=== PATIENT | female | born 1945 | race Two or more races ===

== ENCOUNTER 2023-07-11 11:43 | Emergency (ER) | payer OTHER ==
[~2023-07-11] VITALS: Ht 157.5 cm; Wt 58.5 kg
[2023-07-11] MEDS ORDERED: PRAX237 ML (12:46)
[2023-07-11] MEDS ORDERED: ALLERGY RELIEF10 M3 (12:47)
[2023-07-11] MEDS ORDERED: VERDESO100 GM (12:47)
[2023-07-11 13:08] LABS: HEMATOCRIT 40.8 % (36.0-45.00); HEMOGLOBIN 13.6 g/dL (12.0-15.00); MEAN CELL VOLUME 95.7 fL (80.00-100.00); MEAN CORPUSCULAR HEMOGLOBIN 31.9 pg (27.00-32.0); MEAN CORPUSCULAR HGB CONC 33.3 g/dl (32.0-36.0); PLATELET COUNT 265 K/uL (150-450); RED BLOOD COUNT 4.26 M/uL (4.00-6.00); RED CELL DISTRIBUTION WIDTH 14.2 % (11.5-14.5)
[2023-07-11 13:29] LABS: ALBUMIN 3.5 gm/dL (3.4-5.0); BILIRUBIN TOTAL 0.19 mg/dL (0.3-1.2); CALCIUM 9.1 mg/dL (8.5-10.1); CREATININE SERUM 0.86 mg/dL (0.55-1.02); GFR 63.82; GLOBULINA 3.6 G/DL (2.4-3.5); POTASSIUM 3.15 mEq/L (3.5-5.1); TOTAL PROTEIN 7.1 gm/dL (6.4-8.2)
== END 2023-07-11 16:36 | disposition home or self-care (01) ==
LOC: ER 11:43
PROVIDERS: Emergency Medicine
DX: L30.9 Dermatitis, unspecified (principal); I10 Essential (primary) hypertension
CPT/HCPCS: 36415; 96365; 96366; 99282; J2405; J2920; J7042

== ENCOUNTER 2023-07-24 07:03 | Emergency (ER) | payer OTHER ==
[~2023-07-24] VITALS: Ht 157.5 cm; Wt 65.8 kg
[~2023-07-24 07:03] MED LIST: ALLERGY RELIEF10 M3; PRAX237 ML; VERDESO100 GM
[2023-07-24 08:54] LABS: HEMATOCRIT 36.7 % (36.0-45.00); HEMOGLOBIN 11.9 g/dL (12.0-15.00); MEAN CELL VOLUME 97.3 fL (80.00-100.00); MEAN CORPUSCULAR HEMOGLOBIN 31.4 pg (27.00-32.0); MEAN CORPUSCULAR HGB CONC 32.3 g/dl (32.0-36.0); PLATELET COUNT 277 K/uL (150-450); RED BLOOD COUNT 3.77 M/uL (4.00-6.00)
[2023-07-24 09:45] LABS: ALBUMIN 3.1 gm/dL (3.4-5.0); BILIRUBIN TOTAL 0.29 mg/dL (0.3-1.2); CALCIUM 8.9 mg/dL (8.5-10.1); CREATININE SERUM 0.7 mg/dL (0.55-1.02); GFR 80.93; GLOBULINA 3.6 G/DL (2.4-3.5); POTASSIUM 3.7 mEq/L (3.5-5.1); TOTAL PROTEIN 6.7 gm/dL (6.4-8.2)
[2023-07-24 09:50] LABS: PH,URINE 7.5 (5.0-8.0); URINE APPEARANCE Turbid; URINE BILIRRUBIN Small (NEGATIVE); URINE BLOOD Large; URINE COLOR Orange; URINE GLUCOSE Negative (NEGATIVE); URINE LEUKOCYTE Small; URINE NITRATE Negative; URINE PROTEIN 30 (NEGATIVE); URINE UROBILINOGEN 0.2 E.U./dl
[2023-07-24 09:51] LABS: URINE BACTERIA 255.7 uL (0.0-1933); URINE EPITHELIAL CELLS 3.5 uL (0.0-38.8); URINE WBC 52.8 uL (0.0-23.2)
[2023-07-24 09:58] LABS: URINE RBC > 10558.9 uL (0.0-20.8)
== END 2023-07-24 13:03 | disposition home or self-care (01) ==
LOC: ER 07:04
PROVIDERS: Emergency Medicine
DX: N93.8 Other specified abnormal uterine and vaginal bleeding (principal)

== ENCOUNTER 2023-10-18 09:04 | Inpatient (IN) | payer OTHER ==
[~2023-10-18] VITALS: Ht 152.4 cm; Wt 76.2 kg
[2023-10-18] MEDS ORDERED: LOTENSIN40 MG (09:12)
[2023-10-18] MEDS ORDERED: MEDI-MECLIZINE25 MG PO (09:12)
[2023-10-18] MEDS ORDERED: PEPCID AC20 MG (09:13)
[2023-10-18] MEDS ORDERED: SINGULAIR10 MG (09:13)
[2023-10-18] MEDS ORDERED: 0.9 % SODIUM CHLORIDE 1,000 ML IV STA (09:31)
[2023-10-18] MEDS ORDERED: FAMOtidine 10 MG/ML (4ML VIAL) IV STA (09:32)
[2023-10-18] MEDS ORDERED: ONDANSETRON HCL 2 MG/ML VIAL IV ONE (09:45)
[2023-10-18 10:00] LABS: HEMATOCRIT 37.7 % (36.0-45.00); HEMOGLOBIN 12.5 g/dL (12.0-15.00); MEAN CELL VOLUME 91.4 fL (80.00-100.00); MEAN CORPUSCULAR HEMOGLOBIN 30.3 pg (27.00-32.0); MEAN CORPUSCULAR HGB CONC 33.2 g/dl (32.0-36.0); PLATELET COUNT 214 K/uL (150-450); RED BLOOD COUNT 4.12 M/uL (4.00-6.00); RED CELL DISTRIBUTION WIDTH 14.6 % (11.5-14.5)
[2023-10-18 10:26] LABS: CREATININE SERUM 1.17 mg/dL (0.55-1.02); GFR 44.74
[2023-10-18 10:37] LABS: POTASSIUM 2.19 mEq/L (3.5-5.1)
[2023-10-18] MEDS ORDERED: ACETAMINOPHEN 500 MG GEL..CAP PO STA (10:56)
[2023-10-18] MEDS ORDERED: POTASSIUM CHLORIDE/D5-0.9%NACL 1,000 ML IV ONE (11:00)
[2023-10-18 11:17] LABS: URINE APPEARANCE Cloudy; URINE BILIRRUBIN Negative (NEGATIVE); URINE BLOOD Negative; URINE COLOR Dark Yellow; URINE GLUCOSE Negative (NEGATIVE); URINE LEUKOCYTE Small; URINE NITRATE Negative
[2023-10-18 11:20] LABS: URINE BACTERIA 127.2 uL (0.0-1933); URINE EPITHELIAL CELLS 32.7 uL (0.0-38.8); URINE RBC 173.4 uL (0.0-20.8)
[2023-10-18 12:04] LABS: URINE PROTEIN 100 (NEGATIVE)
[2023-10-18] MEDS ORDERED: ALPRAzolam 1 MG TABLET PO STA (16:09)
[2023-10-18 21:05] LABS: ALBUMIN 2.8 gm/dL (3.4-5.0); BILIRUBIN TOTAL 0.37 mg/dL (0.3-1.2); CALCIUM 8.5 mg/dL (8.5-10.1); CREATININE SERUM 0.76 mg/dL (0.55-1.02); GFR 73.6; GLOBULINA 3.6 G/DL (2.4-3.5); MAGNESIUM 2.6 mg/dL (1.8-2.4); TOTAL PROTEIN 6.4 gm/dL (6.4-8.2)
[2023-10-18 21:15] LABS: POTASSIUM 2.79 mEq/L (3.5-5.1)
[2023-10-18 21:16] LABS: PHOSPHOROUS 1.4 mg/dL (2.5-4.9)
[2023-10-18] MEDS ORDERED: POTASSIUM PHOS,M-BASIC-D-BASIC 3 MM/ML VIAL IV ONE (21:30)
[2023-10-18] MEDS ORDERED: METRONIDAZOLE/SODIUM CHLORIDE 500 MG/100 ML PIGGYBACK IV ONE (23:00)
[2023-10-18] MEDS ORDERED: CIPROFLOXACIN IN 5 % DEXTROSE 400 MG/200 ML PIGGYBAG IV ONE (23:00)
[2023-10-18] MEDS ORDERED: 0.9 % SODIUM CHLORIDE 1,000 ML IV SCH (23:15)
[2023-10-18] MEDS ORDERED: ONDANSETRON HCL 4 MG in 0.9 % SODIUM CHLORIDE 50 ML IV PRN (23:30)
[2023-10-18] MEDS ORDERED: MORPHINE SULFATE 4 MG/ML CARTRIDGE IV PRN (23:30)
[2023-10-18] MEDS ORDERED: ENALAPRILAT DIHYDRATE 1.25 MG/ML VIAL IV PRN (23:30)
[2023-10-18] MEDS ORDERED: ACETAMINOPHEN 500 MG GEL..CAP PO PRN (23:30)
[2023-10-19] MEDS ORDERED: METRONIDAZOLE/SODIUM CHLORIDE 100 ML IV SCH (01:00)
[2023-10-19] MEDS ORDERED: POTASSIUM CHLORIDE IN WATER 100 ML IV SCH (01:00)
[2023-10-19 02:33] LABS: PH,URINE 8.5 (5.0-8.0); URINE APPEARANCE Clear; URINE BILIRRUBIN Negative (NEGATIVE); URINE BLOOD Negative; URINE COLOR Yellow; URINE GLUCOSE Negative (NEGATIVE); URINE LEUKOCYTE Negative; URINE NITRATE Negative; URINE UROBILINOGEN 0.2 E.U./dl
[2023-10-19 02:38] LABS: URINE BACTERIA 8.8 uL (0.0-1933); URINE RBC 16.8 uL (0.0-20.8); URINE WBC 4.4 uL (0.0-23.2)
[2023-10-19 02:39] LABS: URINE PROTEIN 100 (NEGATIVE)
[2023-10-19 02:43] LABS: INR 0.97; PARTIAL THROMBOPLASTIN TIME 29.6 SECONDS (22.0-34.0); PROTHROMBIN TIME 10.2 SECONDS (9.0-11.5)
[2023-10-19] MEDS ORDERED: FAMOTIDINE/PF 20 MG in 0.9 % SODIUM CHLORIDE 8 ML IV PUSH SCH (09:00)
[2023-10-19] MEDS ORDERED: CIPROFLOXACIN IN 5 % DEXTROSE 200 ML IV SCH (09:00)
[2023-10-19 12:32] LABS: CALCIUM 8.5 mg/dL (8.5-10.1); CHOL HDL RATIO 3.1 (0-5.0); CREATININE SERUM 0.57 mg/dL (0.55-1.02); GFR 102.58; POTASSIUM 3.34 mEq/L (3.5-5.1)
[2023-10-19] MEDS ORDERED: AA 4.25%/CAL/LYTES/DEXT 5% 1,000 ML PERIFERAL SCH (17:00)
[2023-10-19] MEDS ORDERED: HALOPERIDOL LACTATE 5 MG/ML AMPUL IM PRN (18:45)
[2023-10-20 06:46] LABS: HEMATOCRIT 36.7 % (36.0-45.00); HEMOGLOBIN 12.2 g/dL (12.0-15.00); MEAN CELL VOLUME 89.6 fL (80.00-100.00); MEAN CORPUSCULAR HEMOGLOBIN 29.8 pg (27.00-32.0); MEAN CORPUSCULAR HGB CONC 33.3 g/dl (32.0-36.0); PLATELET COUNT 221 K/uL (150-450); RED BLOOD COUNT 4.09 M/uL (4.00-6.00); RED CELL DISTRIBUTION WIDTH 14.6 % (11.5-14.5)
[2023-10-20 07:27] LABS: ALBUMIN 2.4 gm/dL (3.4-5.0); BILIRUBIN TOTAL 0.53 mg/dL (0.3-1.2); CALCIUM 8.6 mg/dL (8.5-10.1); CREATININE SERUM 0.42 mg/dL (0.55-1.02); GFR 145.92; GLOBULINA 3.1 G/DL (2.4-3.5); MAGNESIUM 2.1 mg/dL (1.8-2.4); PHOSPHOROUS 2.5 mg/dL (2.5-4.9); POTASSIUM 3.42 mEq/L (3.5-5.1); TOTAL PROTEIN 5.5 gm/dL (6.4-8.2)
[2023-10-20 07:29] LABS: C-REACTIVE PROTEIN 18.2 MG/DL (0.00-0.29)
[2023-10-21] MEDS ORDERED: FAMOTIDINE/PF 20 MG/2 ML VIAL ONE (07:21)
[2023-10-21] MEDS ORDERED: MORPHINE SULFATE 4 MG/ML CARTRIDGE IV SCH (17:00)
[2023-10-21] MEDS ORDERED: METRONIDAZOLE/SODIUM CHLORIDE 500 MG/100 ML PIGGYBACK IV ONE (18:02)
[2023-10-22] MEDS ORDERED: 0.9 % SODIUM CHLORIDE 10 ML VIAL IJ ONE (07:01)
[2023-10-23 12:37] LABS: ALBUMIN 1.9 gm/dL (3.4-5.0); BILIRUBIN TOTAL 0.35 mg/dL (0.3-1.2); CALCIUM 8.3 mg/dL (8.5-10.1); CREATININE SERUM 0.31 mg/dL (0.55-1.02); GFR 207.16; GLOBULINA 3.4 G/DL (2.4-3.5); POTASSIUM 3.84 mEq/L (3.5-5.1); TOTAL PROTEIN 5.3 gm/dL (6.4-8.2)
[2023-10-23 15:22] LABS: HEMATOCRIT 37.9 % (36.0-45.00); HEMOGLOBIN 12.6 g/dL (12.0-15.00); MEAN CORPUSCULAR HEMOGLOBIN 29.7 pg (27.00-32.0); MEAN CORPUSCULAR HGB CONC 33.4 g/dl (32.0-36.0); PLATELET COUNT 248 K/uL (150-450); RED BLOOD COUNT 4.26 M/uL (4.00-6.00); RED CELL DISTRIBUTION WIDTH 14.8 % (11.5-14.5)
[2023-10-23 15:51] LABS: CKMB 1.4 NG/ML (0.5-3.6); MAGNESIUM 1.9 mg/dL (1.8-2.4); PHOSPHOROUS 2.2 mg/dL (2.5-4.9)
[2023-10-23 15:52] LABS: C-REACTIVE PROTEIN 16.3 MG/DL (0.00-0.29)
[2023-10-23] MEDS ORDERED: MEROPENEM 500 MG/VIAL VIAL IV SCH (17:00)
[2023-10-24] MEDS ORDERED: LABETALOL HCL 100 MG/20 ML ML IV PRN (19:00)
[2023-10-24] MEDS ORDERED: LOSARTAN POTASSIUM 50 MG TABLET PO STA (20:03)
[2023-10-24] MEDS ORDERED: LOSARTAN POTASSIUM 50 MG TABLET PO SCH (20:03)
[2023-10-24] MEDS ORDERED: METOPROLOL SUCCINATE 50 MG TAB.SR.24H PO STA (20:03)
[2023-10-24] MEDS ORDERED: METOPROLOL SUCCINATE 50 MG TAB.SR.24H PO SCH (20:03)
[2023-10-24] MEDS ORDERED: AMLODIPINE BESYLATE 10 MG TABLET PO ONE (21:57)
[2023-10-24] MEDS ORDERED: NITROGLYCERIN IN 5 % DEXTROSE 250 ML IV SCH (22:00)
[2023-10-24] MEDS ORDERED: AMLODIPINE BESYLATE 10 MG TABLET PO SCH (22:22)
[2023-10-24] MEDS ORDERED: hydrALAZINE HCL 20 MG VIAL IV PRN (22:30)
[2023-10-25 07:23] LABS: CALCIUM 8.4 mg/dL (8.5-10.1); GFR 253.78; POTASSIUM 4.49 mEq/L (3.5-5.1)
[2023-10-25 07:28] LABS: HEMATOCRIT 32.3 % (36.0-45.00); HEMOGLOBIN 11.2 g/dL (12.0-15.00); MEAN CELL VOLUME 87.2 fL (80.00-100.00); MEAN CORPUSCULAR HEMOGLOBIN 30.3 pg (27.00-32.0); MEAN CORPUSCULAR HGB CONC 34.8 g/dl (32.0-36.0); PLATELET COUNT 243 K/uL (150-450); RED CELL DISTRIBUTION WIDTH 14.8 % (11.5-14.5)
[2023-10-25 07:31] LABS: CREATININE SERUM 0.26 mg/dL (0.55-1.02)
[2023-10-25] MEDS ORDERED: DILTIAZEM HCL 125 MG in 0.9 % SODIUM CHLORIDE 125 ML IV SCH (16:15)
[2023-10-25] MEDS ORDERED: DILTIAZEM HCL 125 MG in 0.9 % SODIUM CHLORIDE 100 ML IV SCH (16:30)
[2023-10-25] MEDS ORDERED: DOXAZOSIN MESYLATE 2 MG TABLET PO SCH (17:00)
[2023-10-26 07:25] LABS: HEMATOCRIT 34.2 % (36.0-45.00); HEMOGLOBIN 11.5 g/dL (12.0-15.00); MEAN CELL VOLUME 89.1 fL (80.00-100.00); MEAN CORPUSCULAR HEMOGLOBIN 29.8 pg (27.00-32.0); MEAN CORPUSCULAR HGB CONC 33.5 g/dl (32.0-36.0); RED BLOOD COUNT 3.84 M/uL (4.00-6.00); RED CELL DISTRIBUTION WIDTH 14.5 % (11.5-14.5)
[2023-10-26 07:46] LABS: ALBUMIN 1.9 gm/dL (3.4-5.0); BILIRUBIN TOTAL 0.5 mg/dL (0.3-1.2); BILIRUBIN,CONJUGATED 0.15 mg/dL (0.0-0.2); BILIRUBIN,UNCONJUGATED 0.35 mg/dL (0.0-0.6); CALCIUM 8.5 mg/dL (8.5-10.1); GFR 242.96; GLOBULINA 3.2 G/DL (2.4-3.5); MAGNESIUM 2.2 mg/dL (1.8-2.4); POTASSIUM 4.38 mEq/L (3.5-5.1); TOTAL PROTEIN 5.1 gm/dL (6.4-8.2)
[2023-10-26 07:48] LABS: CREATININE SERUM 0.27 mg/dL (0.55-1.02)
[2023-10-26 08:31] LABS: PLATELET COUNT 233 K/uL (150-450)
[2023-10-26] MEDS ORDERED: hydrALAZINE HCL 50 MG TABLET PO SCH (09:00)
[2023-10-26] MEDS ORDERED: LOSARTAN POTASSIUM 100 MG TABLET PO SCH (09:00)
[2023-10-26 09:15] LABS: UREA CLEARANCE 30.5 ML/MIN
[2023-10-26 09:51] LABS: INR 0.98; PARTIAL THROMBOPLASTIN TIME 24.1 SECONDS (22.0-34.0); PROTHROMBIN TIME 10.3 SECONDS (9.0-11.5)
[2023-10-26 19:10] LABS: PH,URINE 6.5 (5.0-8.0); URINE APPEARANCE Clear; URINE BILIRRUBIN Negative (NEGATIVE); URINE BLOOD Trace; URINE COLOR Yellow; URINE GLUCOSE Negative (NEGATIVE); URINE LEUKOCYTE Negative; URINE NITRATE Negative; URINE PROTEIN Trace (NEGATIVE); URINE UROBILINOGEN 0.2 E.U./dl
[2023-10-26 19:14] LABS: URINE BACTERIA 32.7 uL (0.0-1933); URINE EPITHELIAL CELLS 5.4 uL (0.0-38.8); URINE RBC 171.9 uL (0.0-20.8)
[2023-10-27 06:54] LABS: HEMATOCRIT 34.3 % (36.0-45.00); HEMOGLOBIN 11.4 g/dL (12.0-15.00); MEAN CELL VOLUME 89.3 fL (80.00-100.00); MEAN CORPUSCULAR HEMOGLOBIN 29.6 pg (27.00-32.0); MEAN CORPUSCULAR HGB CONC 33.2 g/dl (32.0-36.0); PLATELET COUNT 249 K/uL (150-450); RED BLOOD COUNT 3.84 M/uL (4.00-6.00); RED CELL DISTRIBUTION WIDTH 14.5 % (11.5-14.5)
[2023-10-27 06:56] LABS: ALBUMIN 1.8 gm/dL (3.4-5.0); BILIRUBIN TOTAL 0.45 mg/dL (0.3-1.2); CALCIUM 8.5 mg/dL (8.5-10.1); GLOBULINA 3.1 G/DL (2.4-3.5); MAGNESIUM 2.2 mg/dL (1.8-2.4); PHOSPHOROUS 3.3 mg/dL (2.5-4.9); POTASSIUM 4.44 mEq/L (3.5-5.1); TOTAL PROTEIN 4.9 gm/dL (6.4-8.2)
[2023-10-27 07:01] LABS: C-REACTIVE PROTEIN 6.51 MG/DL (0.00-0.29); CREATININE SERUM 0.28 mg/dL (0.55-1.02); GFR 232.99
[2023-10-27 09:25] LABS: PLATELET ESTIMATE NORMAL (NORMAL)
[2023-10-27] MEDS ORDERED: IOHEXOL 350 mgI/ML 50ML BOTT PO ONE (10:15)
[2023-10-28] MEDS ORDERED: PANTOPRAZOLE SODIUM 40 MG/VIAL VIAL IV PUSH SCH (09:00)
[2023-10-29 07:40] LABS: HEMATOCRIT 30.5 % (36.0-45.00); HEMOGLOBIN 10.2 g/dL (12.0-15.00); MEAN CELL VOLUME 88.7 fL (80.00-100.00); MEAN CORPUSCULAR HEMOGLOBIN 29.6 pg (27.00-32.0); MEAN CORPUSCULAR HGB CONC 33.4 g/dl (32.0-36.0); PLATELET COUNT 310 K/uL (150-450); RED BLOOD COUNT 3.44 M/uL (4.00-6.00)
[2023-10-29 08:17] LABS: ALBUMIN 1.5 gm/dL (3.4-5.0); BILIRUBIN TOTAL 0.37 mg/dL (0.3-1.2); CREATININE SERUM 0.36 mg/dL (0.55-1.02); GFR 174.33; GLOBULINA 2.7 G/DL (2.4-3.5); MAGNESIUM 2.5 mg/dL (1.8-2.4); PHOSPHOROUS 3.8 mg/dL (2.5-4.9); POTASSIUM 4.7 mEq/L (3.5-5.1); TOTAL PROTEIN 4.2 gm/dL (6.4-8.2)
[2023-10-29 08:27] LABS: C-REACTIVE PROTEIN 5.85 MG/DL (0.00-0.29)
[2023-10-29] MEDS ORDERED: VANCOMYCIN HCL 1,000 MG VIAL IV SCH (17:00)
[2023-10-29] MEDS ORDERED: hydrALAZINE HCL 50 MG TABLET PO SCH (21:00)
[2023-10-30] MEDS ORDERED: hydrALAZINE HCL 50 MG TABLET PO SCH (09:00)
[2023-10-30] MEDS ORDERED: fentaNYL CITRATE 50 MCG/ML AMPUL IV PUSH ONE (16:30)
[2023-10-30] MEDS ORDERED: MIDAZOLAM HCL 2 MG/2 ML VIAL IV PUSH ONE (16:30)
[2023-10-30] MEDS ORDERED: ENOXAPARIN SODIUM 80 MG/0.8 ML SYRINGE SUBCUTANEO SCH (17:35)
[2023-10-30] MEDS ORDERED: VANCOMYCIN HCL 125 MG/7.5 ML BLIST.PACK PO SCH (18:30)
[2023-10-30] MEDS ORDERED: hydrALAZINE HCL 25 MG TABLET PO SCH (21:00)
[2023-10-31] MEDS ORDERED: hydrALAZINE HCL 25 MG TABLET PO SCH (09:00)
[2023-10-31] MEDS ORDERED: NYSTATIN 15 GM,SILVER SULFADIAZINE 50 GM,ZINC OXIDE 30 GM TOP SCH (10:44)
[2023-11-01] MEDS ORDERED: LACTOBACILLUS ACIDOPHILUS 1 CAP CAP PO SCH (18:42)
[2023-11-01] MEDS ORDERED: BISMUTH SUBSALICYLATE 524 MG/30 ML BLIST.PACK PO PRN (19:00)
[2023-11-02 06:01] LABS: HEMOGLOBIN 10.2 g/dL (12.0-15.00); MEAN CELL VOLUME 89.9 fL (80.00-100.00); MEAN CORPUSCULAR HEMOGLOBIN 30.4 pg (27.00-32.0); MEAN CORPUSCULAR HGB CONC 33.9 g/dl (32.0-36.0); PLATELET COUNT 376 K/uL (150-450); RED BLOOD COUNT 3.34 M/uL (4.00-6.00); RED CELL DISTRIBUTION WIDTH 15.2 % (11.5-14.5)
[2023-11-02 06:33] LABS: CALCIUM 8.2 mg/dL (8.5-10.1); CREATININE SERUM 0.31 mg/dL (0.55-1.02); GFR 207.16; POTASSIUM 3.85 mEq/L (3.5-5.1)
[2023-11-02] MEDS ORDERED: NOREPINEPHRINE BITARTRATE 1 MG/ML AMPUL IV ONE (17:00)
[2023-11-02] MEDS ORDERED: NOREPINEPHRINE BITARTRATE 4 MG in DEXTROSE 5 % IN WATER 250 ML IV SCH (17:30)
[2023-11-02] MEDS ORDERED: VASOPRESSIN IV SCH (18:45)
[2023-11-02] MEDS ORDERED: 0.9 % SODIUM CHLORIDE 1,000 ML IV SCH (18:45)
[2023-11-02] MEDS ORDERED: DEXTROSE 5% IV SCH (18:45)
[2023-11-02] MEDS ORDERED: WATER IV SCH (18:45)
[2023-11-02 19:18] LABS: MEAN CELL VOLUME 90.7 fL (80.00-100.00); MEAN CORPUSCULAR HGB CONC 32.6 g/dl (32.0-36.0); PLATELET COUNT 346 K/uL (150-450); RED BLOOD COUNT 2.12 M/uL (4.00-6.00); RED CELL DISTRIBUTION WIDTH 15.4 % (11.5-14.5)
[2023-11-02 19:33] LABS: ALBUMIN 1.3 gm/dL (3.4-5.0); BILIRUBIN TOTAL 0.55 mg/dL (0.3-1.2); CALCIUM 7.7 mg/dL (8.5-10.1); CREATININE SERUM 0.62 mg/dL (0.55-1.02); GFR 93.09; GLOBULINA 1.9 G/DL (2.4-3.5); POTASSIUM 4.65 mEq/L (3.5-5.1); TOTAL PROTEIN 3.2 gm/dL (6.4-8.2)
[2023-11-02] MEDS ORDERED: EPINEPHRINE HCL/PF 4 MG in DEXTROSE 5 % IN WATER 250 ML IV SCH (19:45)
[2023-11-02 19:46] LABS: MEAN CORPUSCULAR HEMOGLOBIN 29.7 pg (27.00-32.0)
[2023-11-02 19:47] LABS: HEMATOCRIT 19.2 % (36.0-45.00); HEMOGLOBIN 6.3 g/dL (12.0-15.00)
== END 2023-11-02 22:33 | disposition expired | DRG 854 ==
LOC: ER 09:04 → SURH 23:26
PROVIDERS: General Practice; Internal Medicine; Internal Medicine Cardiovascular Disease; Internal Medicine Infectious Disease; Surgery; ADMIT Internal Medicine; ATTEND Internal Medicine
PROC: BW28ZZZ Computerized Tomography (CT Scan) of Head (ICD-10-PCS; 2023-10-18)
PROC: BW40ZZZ Ultrasonography of Abdomen (ICD-10-PCS; 2023-10-18)
PROC: BW21ZZZ Computerized Tomography (CT Scan) of Abdomen and Pelvis (ICD-10-PCS; 2023-10-18)
PROC: BW28ZZZ Computerized Tomography (CT Scan) of Head (ICD-10-PCS; 2023-10-20)
PROC: 02HV33Z Insertion of Infusion Device into Superior Vena Cava, Percutaneous Approach (ICD-10-PCS; 2023-10-20)
PROC: 0FT44ZZ Resection of Gallbladder, Percutaneous Endoscopic Approach (ICD-10-PCS; principal; 2023-10-21 07:00)
PROC: BW21YZZ Computerized Tomography (CT Scan) of Abdomen and Pelvis using Other Contrast (ICD-10-PCS; 2023-10-27)
PROC: B54CZZZ Ultrasonography of Left Lower Extremity Veins (ICD-10-PCS; 2023-10-27)
PROC: 0W9F3ZZ Drainage of Abdominal Wall, Percutaneous Approach (ICD-10-PCS; 2023-10-30)
PROC: B54MZZZ Ultrasonography of Right Upper Extremity Veins (ICD-10-PCS; 2023-10-30)
PROC: 0BH18EZ Insertion of Endotracheal Airway into Trachea, Via Natural or Artificial Opening Endoscopic (ICD-10-PCS; 2023-11-02)
DX: A41.9 Sepsis, unspecified organism (principal); K81.0 Acute cholecystitis; N17.9 Acute kidney failure, unspecified; I46.9 Cardiac arrest, cause unspecified; E87.6 Hypokalemia; E86.0 Dehydration; K52.9 Noninfective gastroenteritis and colitis, unspecified; I10 Essential (primary) hypertension; E83.39 Other disorders of phosphorus metabolism; E78.49 Other hyperlipidemia